=== PATIENT | male | born 1995 | race Caucasian/White ===

== ENCOUNTER 2017-05-17 12:46 | Emergency (ER) | payer OTHER ==
[~2017-05-17] VITALS: Ht 177.8 cm; Wt 84.0 kg
[2017-05-17 12:47] VITALS: BP 126/74; PULSE 95; RESP 14; TEMP 98.4; O2SAT 100
[2017-05-17] MEDS ORDERED: SODIUM CHLOR 0.9% 1000 ML INJ 1,000 ML IV SCH (13:06)
--- NOTE | 2017-05-17 13:10 | PD ---
HPI Chief Complaint: Abdominal Pain Time Seen by Provider: 13:02 Travel History International Travel<30 days: No Contact w/Intl Traveler<30days: No Traveled to known affect area: No History of Present Illness HPI 21-year-old male presents to the emergency department for evaluation of upper abdominal pain that started around 11 AM this morning. He states he then ate at 1120 which did make it worse however, started before eating. He denies any fevers or chills. No chest pain or shortness of breath. Patient states he has had a pain similar in the past after he worked out, but states this is different. He also reports some left upper back pain. Patient denies any nausea, vomiting, diarrhea, constipation. No chronic abdominal issues. No previous surgeries. He states that sitting up and standing up help alleviate his pain. No exacerbating factors. Moderate severity. Current pain is 4-5/10 without radiation. [facility] Social History Alcohol Use: No Tobacco Use: No Substance Use: No Allergies-Medications (Allergen,Severity, Reaction): Coded Allergies: No Known Allergies (Unverified , 05/17/17) Review of Systems Except as stated in HPI: all other systems reviewed are Neg Physical Exam Narrative GENERAL: Well-nourished, well-developed male patient, ambulatory. Afebrile. SKIN: Focused skin assessment warm/dry. HEAD: Normocephalic. Atraumatic. EYES: No scleral icterus. No injection or drainage. NECK: Supple, trachea midline. No JVD or lymphadenopathy. CARDIOVASCULAR: Regular rate and rhythm without murmurs, gallops, or rubs. RESPIRATORY: Breath sounds equal bilaterally. No accessory muscle use. Lungs sounds are clear to auscultation. GASTROINTESTINAL: Abdomen soft and nondistended. Patient has tenderness to epigastric and left upper quadrant. No Fulton's sign. No tenderness over McBurneys point. MUSCULOSKELETAL: No cyanosis, or edema. BACK: Nontender without obvious deformity. No CVA tenderness. Data Data Last Documented VS Vital Signs Date Time Temp Pulse Resp B/P (MAP) Pulse Ox O2 Delivery O2 Flow Rate FiO2 05/17/17 14:22 97.8 85 15 132/68 (89) 100 Room Air Orders Orders Complete Blood Count With Diff (05/17/17 13:06) Comprehensive Metabolic Panel (05/17/17 13:06) Lipase (05/17/17 13:06) Urinalysis - C+S If Indicated (05/17/17 13:06) Iv Access Insert/Monitor (05/17/17 13:06) Ecg Monitoring (05/17/17 13:06) Oximetry (05/17/17 13:06) Pantoprazole Inj (Protonix Inj) (05/17/17 13:15) Sodium Chlor 0.9% 1000 Ml Inj (Ns 1000 M (05/17/17 13:06) Sodium Chloride 0.9% Flush (Ns Flush) (05/17/17 13:15) Al-Mag Hy-Si 40-40-4 Mg/Ml Liq (Mag-Al P (05/17/17 14:15) Lidocaine 2% Viscous (Xylocaine 2% Visco (05/17/17 14:15) Labs Laboratory Tests Test 05/17/17 13:15 White Blood Count 12.6 TH/MM3 Red Blood Count 5.47 MIL/MM3 Hemoglobin 16.3 GM/DL Hematocrit 46.9 % Mean Corpuscular Volume 85.7 FL Mean Corpuscular Hemoglobin 29.8 PG Mean Corpuscular Hemoglobin Concent 34.8 % Red Cell Distribution Width 12.5 % Platelet Count 268 TH/MM3 Mean Platelet Volume 8.0 FL Neutrophils (%) (Auto) 81.8 % Lymphocytes (%) (Auto) 9.5 % Monocytes (%) (Auto) 5.9 % Eosinophils (%) (Auto) 2.5 % Basophils (%) (Auto) 0.3 % Neutrophils # (Auto) 10.3 TH/MM3 Lymphocytes # (Auto) 1.2 TH/MM3 Monocytes # (Auto) 0.7 TH/MM3 Eosinophils # (Auto) 0.3 TH/MM3 Basophils # (Auto) 0.0 TH/MM3 CBC Comment DIFF FINAL Differential Comment Urine Color YELLOW Urine Turbidity CLEAR Urine pH 5.5 Urine Specific [place] 1.029 Urine Protein TRACE mg/dL Urine Glucose (UA) NEG mg/dL Urine Ketones NEG mg/dL Urine Occult Blood NEG Urine Nitrite NEG Urine Bilirubin NEG Urine Urobilinogen LESS THAN 2.0 MG/DL Urine Leukocyte Esterase NEG Urine RBC LESS THAN 1 /hpf Urine WBC 1 /hpf Urine Squamous Epithelial Cells <1 /hpf Urine Mucus FEW /lpf Microscopic Urinalysis Comment CULT NOT INDICATED Blood Urea Nitrogen 17 MG/DL Creatinine 0.95 MG/DL Random Glucose 88 MG/DL Total Protein 8.2 GM/DL Albumin 4.5 GM/DL Calcium Level 9.4 MG/DL Alkaline Phosphatase 52 U/L Aspartate Amino Transf (AST/SGOT) 16 U/L Alanine Aminotransferase (ALT/SGPT) 26 U/L Total Bilirubin 0.6 MG/DL Sodium Level 138 MEQ/L Potassium Level 4.0 MEQ/L Chloride Level 104 MEQ/L Carbon Dioxide Level 28.1 MEQ/L Anion Gap 6 MEQ/L Estimat Glomerular Filtration Rate 100 ML/MIN Lipase 71 U/L [facility] Medical Decision Making Medical Screen Exam Complete: Yes Emergency Medical Condition: Yes Medical Record Reviewed: Yes Differential Diagnosis Gastritis versus pancreatitis versus muscle strain Narrative Course 21-year-old male presents to the emergency department for evaluation of abdominal pain for 2 hours. He appears well on exam. IV access established. CBC, CMP, lipase, UA are ordered and pending. Patient is given Protonix 40 mg IV, normal saline 1 L IV bolus. CBC shows leukocytosis 12.6. CMP is unremarkable. Lipase is 71. UA is negative. Patient is stable for discharge. He will be discharged with a prescription for omeprazole. He is to follow up with a primary care physician or return here for any acute, worsening of symptoms. The patient was discharged in stable condition with instructions, including return instructions and follow up instructions. Diagnosis Primary Impression: Gastritis Qualified Codes: K29.00 - Acute gastritis without bleeding Referrals: Dee Carlos MD call for appointment Patient Instructions: Gastritis (ED), General Instructions Additional Instructions: Take Omeprazole as directed. Follow up with GI. Return to the emergency department for any acute, worsening of symptoms. Med/Other Pt SpecificInfo: Prescription(s) given Scripts Omeprazole (Omeprazole) 40 Mg Cap 40 MG PO DAILY, #30 CAP 0 Refills Prov: Sheyla Jenkins 05/17/17 Disposition: DISCHARGE HOME Condition: Stable Sheyla Jenkins May 17, 2017 13:10
[2017-05-17] MEDS ORDERED: SODIUM CHLORIDE 0.9% FLUSH 10 ML FLUSH IV FLUSH PRN (13:15)
[2017-05-17] MEDS ORDERED: PANTOPRAZOLE SODIUM 40 MG VIAL IVP ONE (13:15)
[2017-05-17 13:30] LABS: AUTOMATED NEUTROPHIL # 10.3 TH/MM3 (1.8-7.7); BASOPHIL % 0.3 % (0.0-2.0); EOSINOPHIL # 0.3 TH/MM3 (0-0.4); EOSINOPHIL % 2.5 % (0.0-4.0); HEMATOCRIT 46.9 % (39.0-51.0); HEMOGLOBIN 16.3 GM/DL (13.0-17.0); LYMPH % 9.5 % (9.0-44.0); LYMPHOCYTE # 1.2 TH/MM3 (1.0-4.8); MEAN CELL VOLUME 85.7 FL (80.0-100.0); MEAN CORPUSCULAR HEMOGLOBIN 29.8 PG (27.0-34.0); MEAN CORPUSCULAR HGB CONC 34.8 % (32.0-36.0); MONO % 5.9 % (0.0-8.0); MONOCYTE # 0.7 TH/MM3 (0-0.9); NEUT % 81.8 % (16.0-70.0); PLATELET COUNT 268 TH/MM3 (150-450); RED BLOOD COUNT 5.47 MIL/MM3 (4.50-5.90); RED CELL DISTRIBUTION WIDTH 12.5 % (11.6-17.2); WHITE BLOOD COUNT 12.6 TH/MM3 (4.0-11.0)
[2017-05-17 13:46] LABS: ALBUMIN 4.5 GM/DL (3.4-5.0); AST (GOT) 16 U/L (15-37); BICARBONATE 28.1 MEQ/L (21.0-32.0); BLOOD UREA NITROGEN 17 MG/DL (7-18); CALCIUM 9.4 MG/DL (8.5-10.1); CHLORIDE 104 MEQ/L (98-107); CREATININE 0.95 MG/DL (0.60-1.30); GLOMERULAR FILTRATION RATE 100 ML/MIN (>89); GLUCOSE,RANDOM 88 MG/DL (74-106); SODIUM (NA) 138 MEQ/L (136-145)
[2017-05-17 13:47] LABS: ALT (GPT) 26 U/L (12-78)
[2017-05-17 13:49] LABS: ALKALINE PHOSPHATASE 52 U/L (45-117); TOTAL BILIRUBIN ADULT 0.6 MG/DL (0.2-1.0); TOTAL PROTEIN 8.2 GM/DL (6.4-8.2)
[2017-05-17 14:00] LABS: BILIRUBIN, URINE NEG (NEG); BLOOD, URINE NEG (NEG); GLUCOSE,URINE NEG (NEG); KETONE, URINE NEG (NEG); MUCUS URINE FEW /lpf (OCC); NITRITE,URINE NEG (NEG); PH, URINE 5.5 (5.0-8.5); SQUAMOUS EPITHELIAL CELL URINE <1 /hpf (0-5); URINE COLOR YELLOW (YELLW/STRAW); URINE LEUKOCYTE ESTERASE NEG (NEG)
[2017-05-17] MEDS ORDERED: LIDOCAINE VISCOUS 2% SOLN 15 ML UDC PO ONE (14:15)
[2017-05-17] MEDS ORDERED: ALUMINUM/MAGNESIUM/SIMETH 30 ML CUP PO ONE (14:15)
[2017-05-17 14:22] VITALS: BP 132/68; PULSE 85; RESP 15; TEMP 97.8; O2SAT 100
[2017-05-17] MEDS ORDERED: OMEP40CA2 PO (14:38)
[2017-05-17 14:44] VITALS: BP 137/78
--- NOTE | 2017-05-17 14:57 | PD ---
Physical Exam Narrative I, Dr. Miller, have reviewed the advance practice practitioner's documentation and am in agreement, met with the patient face to face, made the diagnosis, and the medical decision making was done by me. *My assessment and Findings: Gastritis vs. pancreatitis vs. peptic ulcer disease 21yo M with epigastric abdominal pain today. Pain is worst after eating. Denies any fever, chest pain, sob, n/v, abdominal pain, focal weakness or numbness. Labs reviewed, WBC 12.6. Lipase 71. UA showed no leukocyte. Pt given pantoprazole and GI cocktail. Pain improved after. Pt has no RLQ pain. No nausea or vomiting. Return precautions given. Data Data Last Documented VS Vital Signs Date Time Temp Pulse Resp B/P (MAP) Pulse Ox O2 Delivery O2 Flow Rate FiO2 05/17/17 14:44 65 16 137/78 (97) 100 05/17/17 14:22 97.8 Room Air Orders Orders Complete Blood Count With Diff (05/17/17 13:06) Comprehensive Metabolic Panel (05/17/17 13:06) Lipase (05/17/17 13:06) Urinalysis - C+S If Indicated (05/17/17 13:06) Iv Access Insert/Monitor (05/17/17 13:06) Ecg Monitoring (05/17/17 13:06) Oximetry (05/17/17 13:06) Pantoprazole Inj (Protonix Inj) (05/17/17 13:15) Sodium Chlor 0.9% 1000 Ml Inj (Ns 1000 M (05/17/17 13:06) Sodium Chloride 0.9% Flush (Ns Flush) (05/17/17 13:15) Al-Mag Hy-Si 40-40-4 Mg/Ml Liq (Mag-Al P (05/17/17 14:15) Lidocaine 2% Viscous (Xylocaine 2% Visco (05/17/17 14:15) Ed Discharge Order (05/17/17 14:40) Labs Laboratory Tests Test 05/17/17 13:15 White Blood Count 12.6 TH/MM3 Red Blood Count 5.47 MIL/MM3 Hemoglobin 16.3 GM/DL Hematocrit 46.9 % Mean Corpuscular Volume 85.7 FL Mean Corpuscular Hemoglobin 29.8 PG Mean Corpuscular Hemoglobin Concent 34.8 % Red Cell Distribution Width 12.5 % Platelet Count 268 TH/MM3 Mean Platelet Volume 8.0 FL Neutrophils (%) (Auto) 81.8 % Lymphocytes (%) (Auto) 9.5 % Monocytes (%) (Auto) 5.9 % Eosinophils (%) (Auto) 2.5 % Basophils (%) (Auto) 0.3 % Neutrophils # (Auto) 10.3 TH/MM3 Lymphocytes # (Auto) 1.2 TH/MM3 Monocytes # (Auto) 0.7 TH/MM3 Eosinophils # (Auto) 0.3 TH/MM3 Basophils # (Auto) 0.0 TH/MM3 CBC Comment DIFF FINAL Differential Comment Urine Color YELLOW Urine Turbidity CLEAR Urine pH 5.5 Urine Specific [place] 1.029 Urine Protein TRACE mg/dL Urine Glucose (UA) NEG mg/dL Urine Ketones NEG mg/dL Urine Occult Blood NEG Urine Nitrite NEG Urine Bilirubin NEG Urine Urobilinogen LESS THAN 2.0 MG/DL Urine Leukocyte Esterase NEG Urine RBC LESS THAN 1 /hpf Urine WBC 1 /hpf Urine Squamous Epithelial Cells <1 /hpf Urine Mucus FEW /lpf Microscopic Urinalysis Comment CULT NOT INDICATED Blood Urea Nitrogen 17 MG/DL Creatinine 0.95 MG/DL Random Glucose 88 MG/DL Total Protein 8.2 GM/DL Albumin 4.5 GM/DL Calcium Level 9.4 MG/DL Alkaline Phosphatase 52 U/L Aspartate Amino Transf (AST/SGOT) 16 U/L Alanine Aminotransferase (ALT/SGPT) 26 U/L Total Bilirubin 0.6 MG/DL Sodium Level 138 MEQ/L Potassium Level 4.0 MEQ/L Chloride Level 104 MEQ/L Carbon Dioxide Level 28.1 MEQ/L Anion Gap 6 MEQ/L Estimat Glomerular Filtration Rate 100 ML/MIN Lipase 71 U/L [facility] Supervised Visit with CHRISTINA: Yes Diagnosis Primary Impression: Gastritis Qualified Codes: K29.00 - Acute gastritis without bleeding Referrals: Dee Carlos MD call for appointment Patient Instructions: General Instructions, Omeprazole (By mouth), Gastritis ( ED) Departure Forms: Tests/Procedures Additional Instruction: Take Omeprazole as directed. Follow up with GI. Return to the emergency department for any acute, worsening of symptoms. Scripts Omeprazole (Omeprazole) 40 Mg Cap 40 MG PO DAILY, #30 CAP 0 Refills Prov: GregorySheyla 05/17/17 Disposition: 01 DISCHARGE HOME Condition: Stable Brandy Miller DO May 17, 2017 14:57
== END 2017-05-17 15:00 | disposition home or self-care (01) ==
LOC: NEPE 12:46
DX: K29.00 Acute gastritis without bleeding (principal)
CPT/HCPCS: 80053; 81001; 83690; 85025; 96361; 96374; 99284; C9113; J7030